=== PATIENT | female | born 1980 | race Caucasian/White ===

== ENCOUNTER 2017-07-11 11:49 | Emergency (ER) | payer MEDICAID ==
[2017-07-11 13:51] VITALS: BP 129/87
--- NOTE | 2017-07-11 14:07 | EDM.PDOC ---
ED HPI GENERAL MEDICAL PROBLEM - General Chief Complaint: Upper Extremity Injury/Pain Stated Complaint: HAND CAUGHT BETWEEN WOOD AND SPLITTER Time Seen by Provider: 07/11/17 14:07 Source of Information: Reports: Patient History Limitations: Reports: No Limitations - History of Present Illness INITIAL COMMENTS - FREE TEXT/NARRATIVE: pt caught her left 4th finger in a log splitter. This happened yesterday. She ended up with a 1/8 inch burst laceration and injury to the nail Onset: Other ( this occured yesterday. ) Duration: Hour(s):, Other ( the incident occured yesterday. ) Location: Reports: Upper Extremity, Left Associated Symptoms: Reports: No Other Symptoms Left Hand Pain Score (Numeric/FACES): 2 - Related Data Allergies Allergy/AdvReac Type Severity Reaction Status Date / Time No Known Allergies Allergy Verified 07/11/17 13:54 Home Meds: Home Meds Cyclobenzaprine [Flexeril] 10 mg PO BEDTIME 02/15/16 [History] Escitalopram [Lexapro] 20 mg PO DAILY 02/15/16 [History] Gabapentin [Neurontin] 400 mg PO TID 02/15/16 [History] Ibuprofen 800 mg PO TID PRN 02/15/16 [History] Levothyroxine 0.25 mg PO ACBREAKFAST 02/15/16 [History] Naltrexone 100 mg PO BEDTIME 02/15/16 [History] tiZANidine HCl [Tizanidine HCl] 2 mg PO ASDIRECTED PRN 02/15/16 [History] Cetirizine HCl [Zyrtec] 10 mg PO ASDIRECTED PRN 02/16/16 [History] Pantoprazole [Protonix] 40 mg PO DAILY 02/16/16 [History] Past Medical History 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 (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) Other OB/BYN History: elective Musculoskeletal History: Reports: Back Pain, Chronic Other Musculoskeletal History: since 2008 Neurological History: Reports: Brain Injury, Concussion, Head Trauma Psychiatric History: Reports: Anxiety, Depression, Other (See Below) Other Psychiatric History: Ajustment disorder Endocrine/Metabolic History: Reports: Hypothyroidism - Infectious Disease History Infectious Disease History: Reports: Chicken Pox - Past Surgical History HEENT Surgical History: Reports: Tonsillectomy Social & Family History - Tobacco Use Smoking Status *Q: Current Every Day Smoker Years of Tobacco use: 10 Packs/Tins Daily: 0.5 Used Tobacco, but Quit: No Second Hand Smoke Exposure: No - Caffeine Use Caffeine Use: Reports: Soda - Alcohol Use Days Per Week of Alcohol Use: 3 Number of Drinks Per Day: 3 Total Drinks Per Week: 9 - Recreational Drug Use Recreational Drug Use: No Review of Systems - Review of Systems Review Of Systems: See Below Constitutional: Reports: No Symptoms Eyes: Reports: No Symptoms Ears: Reports: No Symptoms Nose: Reports: No Symptoms Mouth/Throat: Reports: No Symptoms Respiratory: Reports: No Symptoms Cardiovascular: Reports: No Symptoms GI/Abdominal: Reports: No Symptoms Genitourinary: Reports: No Symptoms Musculoskeletal: Reports: Other ( injury to the 4th finger. ) ED EXAM, GENERAL - Physical Exam Exam: See Below Free Text/Narrative:: Pt had a crushing injury to the tip of the left 4th finger. she ended up with a 1/8 inch lac to the finger and a injury to the nail. Amn xray was obtained which revealed a small chip off of the tuft and no other fractures. Exam Limited By: No Limitations General Appearance: Alert, Anxious Nose: Normal Inspection Throat/Mouth: Normal Inspection Head: Atraumatic Extremities: Other ( left 4th finger is bruised. There is 1/8 inch laceration to the side of the 4th finger. This wound is greater than 24 hours old. An xray revealed a very small chip off th tuft. She is current with her tetanus. ) Neurological: Alert, Oriented, Normal Cognition Psychiatric: Normal Affect Course - Vital Signs Last Recorded V/S: Last Vital Signs Temp 36.9 C 07/11/17 13:49 Pulse 85 07/11/17 13:49 Resp 16 07/11/17 13:49 BP 129/87 07/11/17 13:49 Pulse Ox 100 07/11/17 13:49 - Orders/Labs/Meds Orders: Active Orders 24 hr Category Date Time Status Fingers Fourth Digit Lt F3 [CR] Stat Exams 07/11/17 14:03 Taken Meds: Medications Discontinued Medications Generic Name Dose Route Start Last Admin Trade Name Freq PRN Reason Stop Dose Admin Hydrocodone Bitart/Acetaminophen 1 tab 07/11/17 15:16 07/11/17 15:21 [place] 325-5 Mg PO 07/11/17 15:17 1 tab ONETIME ONE Administration Bacitracin 1 dose 07/11/17 15:30 07/11/17 15:39 Bacitracin Oint 1 Gm TOP 07/11/17 15:31 1 dose ONETIME ONE Administration Bacitracin Confirm 07/11/17 15:36 07/11/17 15:39 Bacitracin Oint 1 Gm Administered 07/11/17 15:37 Not Given Dose 1 dose .ROUTE .STK-MED ONE Departure - Departure Time of Disposition: 15:23 Disposition: Home, Self-Care 01 Condition: Fair Clinical Impression: Injury, crush, finger - Discharge Information Instructions: Crush Injury, Fingers or Toes, [id number] Referrals: Lillie Pinto, CRAFT COORDINATOR [Primary Care Provider] - Forms: ED Department Discharge Care Plan Goals: soak bid, dress with bactracin, cool pack after soaking and elevate, keflex 500mg tid for 1 week, motrin 800mg tid, norco 5/325 q6h prn for severe pain - My Orders Last 24 Hours: My Active Orders 07/11/17 14:03 Fingers Fourth Digit Lt F3 [CR] Stat - Assessment/Plan Last 24 Hours: My Active Orders 07/11/17 14:03 Fingers Fourth Digit Lt F3 [CR] Stat
[2017-07-11] MEDS ORDERED: Acetaminophen/HYDROcodone 325-5 MG Tab PO ONE (15:16)
[2017-07-11] MEDS ORDERED: Bacitracin Oint 1 GM U/D Packet TOP ONE (15:30)
[2017-07-11] MEDS ORDERED: Bacitracin Oint 1 GM U/D Packet ONE (15:36)
--- NOTE | 2017-07-12 10:01 | CR ---
Fingers Fourth Digit Lt F3 COMPARISON: None FINDINGS: There is normal alignment. There are no fractures or posttraumatic findings. There are no s ignificant degenerative changes. The soft tissues are unremarkable. IMPRESSION: Negative exam.
== END 2017-07-11 15:50 | disposition home or self-care (01) ==
LOC: JP.ED 11:49
DX: S67.195A Crushing injury of left ring finger, initial encounter (principal); W22.8XXA Striking against or struck by other objects, initial encounter; F17.210 Nicotine dependence, cigarettes, uncomplicated
CPT/HCPCS: 73140; 99284; A9270; 99283

== ENCOUNTER 2018-10-22 12:05 | Emergency (ER) | payer MEDICAID, OTHER ==
--- NOTE | 2018-10-22 12:56 | EDM.PDOC ---
ED HPI GENERAL MEDICAL PROBLEM - General Chief Complaint: General Stated Complaint: LEFT HAND SWOLLEN Time Seen by Provider: 10/22/18 12:52 Source of Information: Reports: Patient History Limitations: Reports: No Limitations - History of Present Illness INITIAL COMMENTS - FREE TEXT/NARRATIVE: pt arrived with a swollen left hand that is painful. She has been wearing a brace. 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 Onset: Gradual Duration: Day(s): Location: Reports: Upper Extremity, Left Associated Symptoms: Reports: No Other Symptoms - Related Data Allergies Allergy/AdvReac Type Severity Reaction Status Date / Time No Known Allergies Allergy Verified 07/11/17 13:54 Home Meds: Home Meds Escitalopram [Lexapro] 20 mg PO DAILY 02/15/16 [History] Gabapentin [Neurontin] 400 mg PO TID 02/15/16 [History] Ibuprofen 800 mg PO TID PRN 02/15/16 [History] Levothyroxine 0.25 mg PO ACBREAKFAST 02/15/16 [History] Naltrexone 100 mg PO BEDTIME 02/15/16 [History] Cetirizine HCl [Zyrtec] 10 mg PO ASDIRECTED PRN 02/16/16 [History] Fluticasone Propionate [Flonase] 16 gm NS DAILY 10/22/18 [History] Past Medical History HEENT History: Reports: None 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 Musculoskeletal History: Reports: Back Pain, Chronic Other Musculoskeletal History: since 2008, diagnosed with tendonitis may 2018 to left wrist Neurological History: Reports: Brain Injury, Concussion, Head Trauma Psychiatric History: Reports: Anxiety, Depression, Other (See Below) Other Psychiatric History: Ajustment disorder, survivor's remorse, codependance Endocrine/Metabolic History: Reports: Hypothyroidism - Infectious Disease History Infectious Disease History: Reports: Chicken Pox - Past Surgical History Head Surgeries/Procedures: Reports: None HEENT Surgical History: Reports: Tonsillectomy Social & Family History - Family History Family Medical History: Noncontributory - Tobacco Use Smoking Status *Q: Current Every Day Smoker Years of Tobacco use: 20 Packs/Tins Daily: 0.5 Second Hand Smoke Exposure: Yes - Caffeine Use Caffeine Use: Reports: Soda - Recreational Drug Use Recreational Drug Use: No ED ROS GENERAL - Review of Systems Review Of Systems: See Below Constitutional: Reports: No Symptoms HEENT: Reports: No Symptoms Respiratory: Reports: No Symptoms Cardiovascular: Reports: No Symptoms Endocrine: Reports: No Symptoms GI/Abdominal: Reports: No Symptoms : Reports: No Symptoms Skin: Reports: Other (pt has a painful swollen left hand) ED EXAM, GENERAL - Physical Exam Exam: See Below Free Text/Narrative:: pt arrived with sig swelling of the left hand. She has been dealing with this for several weeks but the last 2 days she is much worth. 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 Exam Limited By: No Limitations General Appearance: Alert, Anxious, Mild Distress Ears: Normal TMs Nose: Normal Inspection Throat/Mouth: Normal Inspection Head: Atraumatic Neck: Normal Inspection Extremities: Other ( hand is very swollen she is tender over the dorsum of the hand. It is not red or hot. ) Neurological: Alert, Oriented Course - Vital Signs Last Recorded V/S: Last Vital Signs Temp 36.1 C 10/22/18 12:23 Pulse 110 H 10/22/18 12:23 Resp 14 10/22/18 12:23 BP 130/97 H 10/22/18 12:23 Pulse Ox 98 10/22/18 12:23 - Orders/Labs/Meds Orders: Active Orders 24 hr Category Date Time Status Hand Comp Min 3V Lt [CR] Stat Exams 10/22/18 12:51 Ordered Labs: Laboratory Tests 10/22/18 10/22/18 Range/Units 12:52 12:52 WBC 9.5 (4.5-11.0) K/uL RBC 4.23 (3.30-5.50) M/uL Hgb 12.5 (12.0-15.0) g/dL Hct 37.0 (36.0-48.0) % MCV 88 (80-98) fL MCH 30 (27-31) pg MCHC 34 (32-36) % Plt Count 355 (150-400) K/uL Neut % (Auto) 50 (36-66) % Lymph % (Auto) 35 (24-44) % [place] % (Auto) 11 H (2-6) % Eos % (Auto) 3 (2-4) % Baso % (Auto) 1 (0-1) % Uric Acid 3.6 (2.6-6.2) mg/dL Meds: Medications Discontinued Medications Generic Name Dose Route Start Last Admin Trade Name [place] PRN Reason Stop Dose Admin Triamcinolone Acetonide 60 mg 10/22/18 13:28 Kenalog-40 INJECT 10/22/18 13:29 ASDIRECTED ONE - Re-Assessments/Exams Free Text/Narrative Re-Assessment/Exam: 10/22/18 13:26 pt has a normal uric acid and her wbc is normal. Xray appears normal. Pt was given kenalog 60mg im and was placed on naprosyn 500mg bid with food. 10/22/18 13:34 Departure - Departure Time of Disposition: 13:34 Disposition: Home, Self-Care 01 Condition: Fair Clinical Impression: Tendonitis - Discharge Information Referrals: PCP,None [Primary Care Provider] - Forms: ED Department Discharge Care Plan Goals: ortho referal , naprosyn 500mg bid. She received kenalog 60 mg in the Er. cont to wear the splint. - My Orders Last 24 Hours: My Active Orders 10/22/18 12:51 Hand Comp Min 3V Lt [CR] Stat - Assessment/Plan Last 24 Hours: My Active Orders 10/22/18 12:51 Hand Comp Min 3V Lt [CR] Stat
[2018-10-22] MEDS ORDERED: Triamcinolone Acetonide 40 MG/ML 1 ML MDV INJECT ONE (13:28)
[2018-10-22 13:48] VITALS: BP 139/98
== END 2018-10-22 13:50 | disposition home or self-care (01) ==
LOC: JP.ED 12:05
DX: M77.9 Enthesopathy, unspecified (principal); F17.210 Nicotine dependence, cigarettes, uncomplicated; F41.9 Anxiety disorder, unspecified; F32.9 Major depressive disorder, single episode, unspecified; E03.9 Hypothyroidism, unspecified; Z79.899 Other long term (current) drug therapy
CPT/HCPCS: 36415; 73130; 84550; 85025; 96372; 99284; J3301